=== PATIENT | male | born 1945 | race Caucasian/White ===

== ENCOUNTER → 2020-12-01 10:32 | Outpatient (BNVA) | payer MEDICARE, SELFPAY | PROVIDERS: PCP Family Medicine; Referring Provider Family Medicine; Visit Provider Urology | DX: R35.1 Nocturia (principal); R97.20 Elevated prostate specific antigen [PSA]; N32.0 Bladder-neck obstruction | CPT/HCPCS: 81002; 99212 ==

== ENCOUNTER → 2021-12-04 13:50 | Outpatient (BNVA) | payer MEDICARE, SELFPAY | PROVIDERS: PCP Family Medicine; Visit Provider Urology | DX: N32.0 Bladder-neck obstruction (principal) | CPT/HCPCS: 51798; 99212 ==

== ENCOUNTER 2022-02-22 13:12 | Emergency (ER) | payer MEDICARE, SELFPAY ==
[2022-02-22] VITALS (11 sets, daily range): BP systolic 129–149; BP diastolic 75–87; PULSE 60–73; RESP 16–18; TEMP 36.3–37; O2SAT 95–99; BMI 31.4
--- NOTE | 2022-02-22 | ECG_ITS ---
Test Reason : cp Blood Pressure : / mmHG Vent. Rate : 073 BPM Atrial Rate : 073 BPM P-R Int : 208 ms QRS Dur : 098 ms QT Int : 392 ms P-R-T Axes : 054 -28 090 degrees QTc Int : 431 ms Sinus rhythm with Premature atrial complexes Moderate voltage criteria for LVH, may be normal variant ( R in aVL , [place] product ) Nonspecific ST and T wave abnormality Abnormal ECG When compared with ECG of 22-FEB-2022 15:10, Premature atrial complexes are now Present Referred By: Radha Beasley Electronically Signed By:BRANDIE DELACRUZ MD
--- NOTE | ~2022-02-22 | FL_ITS ---
EXAMINATION: XR FLUOROSCOPY WITH IMAGES CLINICAL INFORMATION: Right ureteral stone COMPARISON: Ultrasound renal 06/26/2016, [facility] 05/03/2015 TECHNIQUE: Fluoroscopy performed by Dr. Malcolm Campos. Fluoroscopy time: 62 seconds. Cumulative Dose: 36.83 mGy. Images: 2. FINDINGS: There is guidewire in the right collecting system. Some trace contrast is present. No visible hydronephrosis or extravasation. FL/FL guidance in OR IMPRESSION: Fluoroscopy for urologic procedure.
--- NOTE | 2022-02-22 14:51 | ECG_ITS ---
Test Reason : PRE-OP Blood Pressure : / mmHG Vent. Rate : 066 BPM Atrial Rate : 066 BPM P-R Int : 192 ms QRS Dur : 098 ms QT Int : 386 ms P-R-T Axes : -29 -28 081 degrees QTc Int : 404 ms Normal sinus rhythm Moderate voltage criteria for LVH, may be normal variant ( R in aVL , [place] product ) Nonspecific ST and T wave abnormality Abnormal ECG No previous ECGs available Referred By: Marissa England Electronically Signed By:Antony Escalante
[2022-02-22 14:55] LABS: MANUAL DIFF FLAG NO
--- NOTE | 2022-02-22 14:56 | ED.ABDPAIN ---
HPI - Abdominal Pain General Chief Complaint: Abdominal Pain Stated Complaint: Kidney stone sent by Dr Campos Time Seen by Provider: 02/22/22 14:34 Source: patient Mode of arrival: ambulatory Limitations: no limitations History of Present Illness HPI narrative: known kidney stone dx at [facility] sent to ED by Dr. Campos planned OR later today sent to ED for pain control MD elicited complaint: flank pain Pertinent past history: kidney stones Onset (ago): day(s) (3) Pain Consistency: constant Location: R flank Severity: moderate Quality: sharp Radiation: none Migration to: no migration Exacerbating factors: nothing Relieving factors: nothing Context: history of similar episodes Associated symptoms: nausea Related Data Home Medications Medication Instructions Recorded Confirmed metformin 500 mg tablet,extended 500 mg PO TID 02/22/22 release 24 hr omeprazole 20 mg capsule,delayed 20 mg PO BID 02/22/22 release Previous Rx's Medication Instructions Recorded naproxen 500 mg tablet (Naprosyn) 500 mg PO Q12H PRN pain 30 days 02/22/22 #60 tabs Allergies Allergy/AdvReac Type Severity Reaction Status Date / Time Penicillins [PCN] Allergy Intermediate RASH Unverified 02/22/22 11:08 Dtttkoq-UCA-NmW Reductase Allergy Intermediate BACK PAIN Unverified 02/22/22 11:08 Inhibitor [ZWBVOMC-SED-ILK REDUCTASE INHIBITOR] penicillin V Allergy Unknown rash Verified 02/22/22 11:08 statin drugs AdvReac Unknown neck pain Uncoded 02/22/22 11:08 Review of Systems Review of Systems Constitutional : No Weight loss, No Fever, No Chills ENT/Mouth : No sore throat, No Rhinorrhea Eyes: No Swelling, No Redness Cardiovascular : No Chest Pain, No SOB, NoEdema Respiratory : No Cough, No Sputum, No Wheezing Gastrointestinal : Positive Nausea, no Vomiting, no Diarrhea, positive abdominal Pain, No Hematochezia, No Melena Genitourinary : No Dysuria, No Urinary Frequency, No Hematuria, No Urgency Musculoskeletal : No joint pain, No Myalgias, No Joint Swelling Skin : No Skin Lesions, No rash Neuro : No Weakness, No Numbness, No Dizziness, No Headache Psych : No Anxiety/Panic, No Depression Heme/Lymph: No Bruising, No Lymphadenopathy Endocrine : No Polyuria, No Polydipsia All other systems reviewed and are negative. [facility] Past Medical History Attestation statement: The following information was validated with the patient. Medical History Diabetes Elevated PSA Nephrolithiasis Social History Social History (Updated 02/22/22 @ 14:57 by Marissa England DO) Patient Tobacco Use Status: Never used Tobacco Use of substances other than those prescribed or required for medical reasons: No Advance Directives: Yes Advance Directives Information Provided: Yes Advance Directives on File: No Physical Exam ED Vital Signs: Vital Signs - 24 hr 02/22/22 13:40 02/22/22 15:26 02/22/22 15:30 Temperature 97.8 F 98.6 F Pulse Rate 70 60 65 Respiratory Rate 18 16 17 Blood Pressure 138/78 140/87 H 136/81 Pulse Oximetry 96 96 95 Oxygen Delivery Method Room Air Room Air Room Air BMI result Body Mass Index 31.4 Appearance: Alert. Oriented X3. No acute distress. Eyes: Pupils equal, round and reactive to light. ENT: Pharynx normal. Neck: Normal inspection. Neck supple. CVS: Normal heart rate and rhythm. Pulses normal. Respiratory: No respiratory distress. Breath sounds normal. Abdomen: Soft and mild R sided abdominal ttp no rebound Skin: Skin warm and dry. Normal skin color. Normal skin turgor. Extremities: No lower extremity edema. No calf ttp Neuro: Oriented X 3. No motor deficit. No sensory deficit. Course Course Course Narrative: Cr 1.8 on 02/21 at [facility] [place] CT scan mild R hydronephrosis 1.8 x 0.9 x 1.5cm R UPJ junction notified Andres of Cr increased from 1.8 to 2.9 - Dr. Campos aware MDM - Abdominal Pain MDM Narrative Medical decision making narrative: 77 yo male with hx of DM, renal colic sent to ED for pain control plan for OR later today - at this time will need labs, UA, IV dilaudid for pain, planned admit to short stay surgery Lab Data Result diagrams: 02/22/22 14:51 02/22/22 14:51 Labs: Lab Results 02/22/22 02/22/22 02/22/22 Range/Units 14:51 14:51 14:51 WBC 10.5 (4.8-10.8) X10*3/uL RBC 4.68 (4.60-5.80) X10*6/uL Hgb 14.0 (14.0-18.0) g/dl Hct 42.8 (42.0-52.0) % MCV 91.5 (80.0-98.0) fL MCH 29.9 (27.0-33.0) pg MCHC 32.7 (31.0-36.0) g/dl RDW 12.9 (11.0-16.0) % Plt Count 172 (160-400) X10*3/uL MPV 10.1 (9.4-12.4) fL Immature Gran % (Auto) 0.4 (0.0-0.4) % Neut % (Auto) 66.5 (45-73) % Lymph % (Auto) 20.2 (20-40) % [place] % (Auto) 10.7 (2-11) % Eos % (Auto) 1.8 (0-4) % Baso % (Auto) 0.4 (0-2) % Lymph # (Auto) 2.1 (1.2-4.9) X10*3/uL [place] # (Auto) 1.1 (0.1-1.2) X10*3/uL Eos # (Auto) 0.2 (0.0-0.4) X10*3/uL Baso # (Auto) 0.0 (0.0-0.2) X10*3/uL Abs Immat Gran (auto) 0.04 H (0.00-0.03) X10*3/uL Absolute Neuts (auto) 7.0 (2.0-8.3) x10*3/uL Absolute Nucleated RBC 0.000 (0.0-0.012) X10*3/uL Nucleated RBC % (auto) 0.0 (0.0-0.2) /100WBC PT 11.5 (10.0-13.1) SEC INR 1.0 (0.9-1.1) Sodium 138 (135-145) mmol/L Potassium 4.3 (3.3-5.1) mmol/L Chloride 103 (96-108) mmol/L Carbon Dioxide 25 (22-29) mmol/L Anion Gap 14 (12-20) BUN 32 H (9-16) mg/dL Creatinine 2.92 H (0.5-1.4) mg/dL Estim Creat Clear Calc 25.3 Estimated GFR 21 Random Glucose 150 H (60-115) mg/dL Calcium 8.7 (8.4-10.2) mg/dL COVID-19 (HORACIO) (Negative) COVID-19 Clin Com 02/22/22 Range/Units 14:51 WBC (4.8-10.8) X10*3/uL RBC (4.60-5.80) X10*6/uL Hgb (14.0-18.0) g/dl Hct (42.0-52.0) % MCV (80.0-98.0) fL MCH (27.0-33.0) pg MCHC (31.0-36.0) g/dl RDW (11.0-16.0) % Plt Count (160-400) X10*3/uL MPV (9.4-12.4) fL Immature Gran % (Auto) (0.0-0.4) % Neut % (Auto) (45-73) % Lymph % (Auto) (20-40) % [place] % (Auto) (2-11) % Eos % (Auto) (0-4) % Baso % (Auto) (0-2) % Lymph # (Auto) (1.2-4.9) X10*3/uL [place] # (Auto) (0.1-1.2) X10*3/uL Eos # (Auto) (0.0-0.4) X10*3/uL Baso # (Auto) (0.0-0.2) X10*3/uL Abs Immat Gran (auto) (0.00-0.03) X10*3/uL Absolute Neuts (auto) (2.0-8.3) x10*3/uL Absolute Nucleated RBC (0.0-0.012) X10*3/uL Nucleated RBC % (auto) (0.0-0.2) /100WBC PT (10.0-13.1) SEC INR (0.9-1.1) Sodium (135-145) mmol/L Potassium (3.3-5.1) mmol/L Chloride (96-108) mmol/L Carbon Dioxide (22-29) mmol/L Anion Gap (12-20) BUN (9-16) mg/dL Creatinine (0.5-1.4) mg/dL Estim Creat Clear Calc Estimated GFR Random Glucose (60-115) mg/dL Calcium (8.4-10.2) mg/dL COVID-19 (HORACIO) Negative (Negative) COVID-19 Clin Com See Note ECG Data Attestation: I personally reviewed and interpreted this ECG as follows: ECG interpretation date: 02/22/22 ECG interpretation time: 15:21 Interpretation: Rate: 66 Rhythm: NSR [place]: left, LVH Normal P waves. Normal CRISTIANO. Normal QRS complex. ST T wave : nonspecific no DARLYN qTC: normal prior studies: no acute ischemia The study has been interpreted contemporaneously by me. . Discharge Plan Discharge Clinical Impression: Renal colic, Acute renal failure Patient Disposition: Admitted As Inpatient
[2022-02-22 14:57] LABS: Basophils Percent Auto 0.4 % (0-2); Eosinophils Absolute Auto 0.2 X10*3/uL (0.0-0.4); Eosinophils Percent Auto 1.8 % (0-4); Hematocrit 42.8 % (42.0-52.0); Imm Gran Abs Auto 0.04 X10*3/uL (0.00-0.03); Imm Gran Pct Auto 0.4 % (0.0-0.4); Lymphocytes Absolute Auto 2.1 X10*3/uL (1.2-4.9); Lymphocytes Percent Auto 20.2 % (20-40); Mean Corpuscular HGB Conc 32.7 g/dl (31.0-36.0); Mean Corpuscular Hemoglobin 29.9 pg (27.0-33.0); Mean Corpuscular Volume 91.5 fL (80.0-98.0); Mean Platelet Volume 10.1 fL (9.4-12.4); Monocytes Absolute Auto 1.1 X10*3/uL (0.1-1.2); Monocytes Percent Auto 10.7 % (2-11); Neutrophils Percent Auto 66.5 % (45-73); Platelet Count 172 X10*3/uL (160-400); Red Blood Count 4.68 X10*6/uL (4.60-5.80); Red Cell Distribution Width 12.9 % (11.0-16.0); White Blood Count 10.5 X10*3/uL (4.8-10.8)
[2022-02-22 15:03] LABS: Prothrombin Time 11.5 SEC (10.0-13.1)
[2022-02-22 15:12] LABS: COVID-19 Test Negative (Negative)
[2022-02-22 15:14] LABS: Anion Gap 14 (12-20); Blood Urea Nitrogen 32 mg/dL (9-16); Calcium 8.7 mg/dL (8.4-10.2); Carbon Dioxide 25 mmol/L (22-29); Chloride 103 mmol/L (96-108); Creatinine Clr Calc Pharmacy 25.3; Estimated Glomerular Filt Rate 21; Glucose Random 150 mg/dL (60-115); Potassium 4.3 mmol/L (3.3-5.1); Sodium 138 mmol/L (135-145)
[2022-02-22] MEDS: ondansetron HCL 4 MG/2 ML VIAL IVPUSH (15:23)
[2022-02-22] MEDS: HYDROmorphone HCl 1 MG/ML SYRINGE IVPUSH (15:23)
[2022-02-22] MEDS: 0.9 % Sodium Chloride 1,000 ML 999 ML IV ×3 (15:24→16:34)
--- NOTE | 2022-02-22 16:46 | P.CNUR_ITS ---
History of Present Illness Consult details Consult date: 02/22/22 Narrative: consult - right renal stone with acute kidney insult George is a pleasant male Known to Urology for BPH Presented to [facility] with 2 days of pain yesterday and found to have 1.4 cm right renal stone After talking to office this morning had persistent pain in inability to tolerate oral intake Assessed in emergency room with creatinine of 2.9 up from 1.6 WBC 10.5 Recommend cystoscopy with right retrograde and stent placement for relief of renal obstruction Review of Systems Constitutional: Constitutional: Reports as per HPI and Reports no additional constitutional complaints Cardiovascular: Cardiovascular: Reports as per HPI and Reports no additional cardiovascular complaints Respiratory: Respiratory: Reports as per HPI and Reports no additional respiratory complaints Gastrointestinal: Gastrointestinal: Reports as per HPI and Reports no additional gastrointestinal complaints Genitourinary: Genitourinary: Reports as per HPI Musculoskeletal: Musculoskeletal: Reports no additional musculoskeletal comp laints and Reports as per HPI Neurologic: Reports system reviewed and no additional complaints, except as documented and Reports as per HPI [facility] Past Medical History Medical History Diabetes Elevated PSA Nephrolithiasis Social History Social History (Updated 02/22/22 @ 14:57 by Marissa England DO) Patient Tobacco Use Status: Never used Tobacco Use of substances other than those prescribed or required for medical reasons: No Advance Directives: Yes Advance Directives Information Provided: Yes Advance Directives on File: No Meds Allergies Allergy/AdvReac Type Severity Reaction Status Date / Time Penicillins [PCN] Allergy Intermediate RASH Unverified 02/22/22 11:08 Qvmdnic-DNQ-ElH Reductase Allergy Intermediate BACK PAIN Unverified 02/22/22 11:08 Inhibitor [IGGLTLI-QHR-QHR REDUCTASE INHIBITOR] penicillin V Allergy Unknown rash Verified 02/22/22 11:08 statin drugs AdvReac Unknown neck pain Uncoded 02/22/22 11:08 Active Medications: Current Medications Pharmacy Consult (Consult Rx Perform Med Rec) 1 each MISCELLANE ONCE PRN PRN Reason: Consult order Home Medications Medication Instructions Recorded Confirmed Last Taken Type metformin 500 mg tablet,extended 500 mg PO TID 02/22/22 Unknown History release 24 hr omeprazole 20 mg capsule,delayed 20 mg PO BID 02/22/22 Unknown History release Physical Exam Vital Signs: Vital Signs: Last Vital Signs Temp 98.6 F 02/22/22 15:30 Pulse 67 02/22/22 16:34 Resp 16 02/22/22 16:34 BP 147/83 H 02/22/22 16:34 Pulse Ox 97 02/22/22 16:34 O2 Del Method 02/22/22 16:34 BMI result Body Mass Index 31.4 Const: General: cooperative, healthy appearing, comfortable and no acute distress Orientation/consciousness: patient oriented x3 HEENT: Face and sinus: Yes normal facial exam Mouth: moist mucous membranes Neck: Neck: Yes normal visual inspection, Yes full ROM and Yes trachea midline Chest: Chest palpation & inspection: normal inspection of the chest Resp: Effort & Inspection: normal respiratory effort, able to speak in complete sentences and no respiratory distress GI: Inspection: Yes normal to inspection Back/Spine/Pelvis: Cervical Spine: normal cervical lordosis Thoracic/Lumbar Spine: thoracic and lumbar spine normal to inspection Skin: General skin exam: no rashes or lesions noted Neuro: General: patient oriented x3, tone normal and moves all extremities Extrem: General: Yes normal to inspection and Yes capillary refill normal Results Labs Result diagrams: 02/22/22 14:51 02/22/22 14:51 Labs: Abnormal lab results 02/22/22 02/22/22 Range/Units 14:51 14:51 Abs Immat Gran (auto) 0.04 H (0.00-0.03) X10*3/uL BUN 32 H (9-16) mg/dL Creatinine 2.92 H (0.5-1.4) mg/dL Random Glucose 150 H (60-115) mg/dL Short CBC 02/22/22 Range/Units 14:51 WBC 10.5 (4.8-10.8) X10*3/uL Hgb 14.0 (14.0-18.0) g/dl Hct 42.8 (42.0-52.0) % Plt Count 172 (160-400) X10*3/uL BMP 02/22/22 14:51 Sodium 138 Potassium 4.3 Chloride 103 Carbon Dioxide 25 BUN 32 H Creatinine 2.92 H Calcium 8.7 All other labs normal. Assessment and Plan (1) Renal colic: Status: Acute (2) Acute renal failure: Qualifiers: Acute renal failure type: unspecified Qualified Code(s): N17.9 - Acute kidney failure, unspecified Status: Acute (3) Nephrolithiasis: Status: Acute Plan cystoscopy, right retrograde, right stent placement will defer stone therapy until renal function normalized Procedures Date of Service Date of Service: 02/22/22
--- NOTE | 2022-02-22 16:52 | PHA.MEDREC ---
Pharmacy Consult ? Medication Reconciliation Pharmacy has completed the medication reconciliation. Patient reported all medicaitons. Maryan ConnorsD
[2022-02-22 17:11] LABS: Glucose, Whole Blood 125 mg/dL (60-115)
--- NOTE | 2022-02-22 17:18 | HO.ANESPROP2 ---
FORMERLY [facility], [facility] Active Problems Active Problems: All Active Problems (Updated 02/22/22 @ 16:48 by Malcolm Campos MD) Nephrolithiasis (Acute) Renal colic (Acute) Acute renal failure (Acute) Bladder outlet obstruction (Acute) Nocturia more than twice per night (Acute) Past Medical History Medical History Diabetes Elevated PSA Nephrolithiasis Functional capacity: independent ambulation Family History Family history of problems with anesthesia: No Surgical History History of Problems with Anesthesia: No Social History Social History Patient Tobacco Use Status: Never used Tobacco Use of substances other than those prescribed or required for medical reasons: No Are you DNR?: No Advance Directives: No Advance Directives Information Provided: No Advance Directives on File: No Meds Allergies Allergy/AdvReac Type Severity Reaction Status Date / Time Penicillins [PCN] Allergy Intermediate RASH Unverified 02/22/22 11:08 Llpjzwl-NBQ-VsU Reductase Allergy Intermediate BACK PAIN Unverified 02/22/22 11:08 Inhibitor [FEWUJZP-KBQ-GNK REDUCTASE INHIBITOR] penicillin V Allergy Unknown rash Verified 02/22/22 11:08 statin drugs AdvReac Unknown neck pain Uncoded 02/22/22 11:08 Active Medications: Current Medications Levofloxacin (Levaquin) 500 mg in 100 mls @ 100 mls/hr IV PREOP ONE Stop: 02/22/22 17:44 Pharmacy Consult (Consult Rx Perform Med Rec) 1 each MISCELLANE ONCE PRN PRN Reason: Consult order Home Medications Medication Instructions Recorded Confirmed Last Taken Type metformin 500 mg tablet,extended 500 mg PO TID 02/22/22 02/22/22 02/22/22 History release 24 hr multivitamin 1 tab PO DAILY 02/22/22 02/22/22 02/22/22 History omeprazole 20 mg capsule,delayed 20 mg PO BID 02/22/22 02/22/22 02/22/22 History release Exam Exam Date and Time: February 22, [id number] Height,Weight and Vital Signs: Height 5 ft 11 in Weight 102.058 kg Last Vital Signs Temp 98.0 F 02/22/22 16:58 Pulse 71 02/22/22 16:58 Resp 18 02/22/22 16:58 BP 149/83 H 02/22/22 16:58 Pulse Ox 97 02/22/22 16:58 O2 Del Method 02/22/22 16:58 Pertinent Lab Results Pertinent Lab Results: Laboratory Tests 02/22/22 02/22/22 02/22/22 14:51 14:51 14:51 WBC 10.5 RBC 4.68 Hgb 14.0 Hct 42.8 MCV 91.5 MCH 29.9 MCHC 32.7 RDW 12.9 Plt Count 172 MPV 10.1 Immature Gran % (Auto) 0.4 Neut % (Auto) 66.5 Lymph % (Auto) 20.2 [place] % (Auto) 10.7 Eos % (Auto) 1.8 Baso % (Auto) 0.4 Lymph # (Auto) 2.1 [place] # (Auto) 1.1 Eos # (Auto) 0.2 Baso # (Auto) 0.0 Abs Immat Gran (auto) 0.04 H Absolute Neuts (auto) 7.0 Absolute Nucleated RBC 0.000 Nucleated RBC % (auto) 0.0 PT 11.5 INR 1.0 Sodium 138 Potassium 4.3 Chloride 103 Carbon Dioxide 25 Anion Gap 14 BUN 32 H Creatinine 2.92 H Estim Creat Clear Calc 25.3 Estimated GFR 21 POC Glucose Random Glucose 150 H Calcium 8.7 COVID-19 (HORACIO) COVID-19 [place] Com 02/22/22 02/22/22 14:51 17:06 WBC RBC Hgb Hct MCV MCH MCHC RDW Plt Count MPV Immature Gran % (Auto) Neut % (Auto) Lymph % (Auto) [place] % (Auto) Eos % (Auto) Baso % (Auto) Lymph # (Auto) [place] # (Auto) Eos # (Auto) Baso # (Auto) Abs Immat Gran (auto) Absolute Neuts (auto) Absolute Nucleated RBC Nucleated RBC % (auto) PT INR Sodium Potassium Chloride Carbon Dioxide Anion Gap BUN Creatinine Estim Creat Clear Calc Estimated GFR POC Glucose 125 H Random Glucose Calcium COVID-19 (HORACIO) Negative COVID-19 Clin Com See Note Airway Mallampati Class: II TM Dist: >3cm Neck ROM: Full Heart: RRR Lungs: CTA Assessment and Plan Final Anesthetic Review Family History of Problems with Anesthesia: No History of Problems with Anesthesia: No ASA Class: II and Emergency Final Preanesthetic Review: No Changes in Pt Med Stat, Meds/Allgs Chart Reviewed, Consent Obtained/Reviewed and Anes Risks/Benef Reviewed Patient Risk: Low Procedure Risk: Low Anesthetic Plan Anesthetic Plan: GA Disposition: Standard PACU
--- NOTE | 2022-02-22 18:02 | MHC.SHP ---
Pre-Procedural Eval Section A Date of Service: 02/22/22 The patient is an INPATIENT: No Changes since office visit: No Cold of Flu in the past 2 weeks, No New Medical Problems, No Changes in Medication and No Patient answered all questions The History & Physical has been completed within 30 days and I have reviewed it.: Yes Section B Chief Complaint: Kidney stone sent by Dr Campos Allergies: Allergies Allergy/AdvReac Type Severity Reaction Status Date / Time Penicillins [PCN] Allergy Intermediate RASH Unverified 02/22/22 11:08 Skkbnxh-OQI-TwK Reductase Allergy Intermediate BACK PAIN Unverified 02/22/22 11:08 Inhibitor [PBNIEFM-PWA-BWR REDUCTASE INHIBITOR] penicillin V Allergy Unknown rash Verified 02/22/22 11:08 statin drugs AdvReac Unknown neck pain Uncoded 02/22/22 11:08 Plan Diagnosis/Plan: Unchanged ( cystoscopy, right retrograde, right stent placement) I have reviewed the history and physical and performed a pertinent physical examination on my patient. No changes have occurred unless specified.
--- NOTE | 2022-02-22 18:19 | W.PM.OPN ---
Operative Note Operative Note Date of Service: 02/22/22 Narrative: PreOperative Diagnosis: right obstructing ureteral stone Post Operative Diagnosis: right obstructing renal stone Procedure: cystoscopy, right retrograde, right stent placement Surgeon: Dr Malcolm Campos Anesthesia: LMA Indications for procedure: acute renal insult with inability to maintain fluids Procedure: After informed consent was verified the patient was brought to the operating room and placed in a supine position. Anesthesia was administered per protocol. The patient was placed in modified dorsal lithotomy position and prepped and draped in a sterile fashion. A safety pause time-out was performed. Laterality of procedure and antibiotics were confirmed. appropriate imaging was available A 22 Sinhala cystoscope was introduced per urethra. No abnormality was noted. Both ureteric orifices were seen in a normal position. The right ureter was cannulated with an open ended catheter and a retrograde examination was performed. filling defects seen in right renal pelvis . A Sensor guidewire was placed under fluoroscopy and a good coil was seen within the renal pelvis. A 6 Sinhala by 28 cm double-J stent was advanced over the wire and up to the level of the renal pelvis under fluoroscopic and direct visualization. The stent was seen with appropriate coil within the renal pelvis and in the bladder after deployment. The patient tolerated the procedure well and was transferred in stable condition to the recovery area. Pathology: none Drains: stent is above
--- NOTE | 2022-02-22 18:48 | PC.NURSE ---
PATIENT CR 2.92. DR. LOGAN AWARE AND REPORTS PATIENT ABLE TO DISCHARGE TO HOME
[2022-02-22] MEDS: Phenazopyridine HCL 100 MG TABLET PO (18:59)
[2022-02-22 19:14] LABS: Glucose, Whole Blood 126 mg/dL (60-115)
--- NOTE | 2022-02-23 07:55 | MHC.CM.PN ---
Patient d/c'd home before being seen by case management.
[2022-03-03 05:31] LABS: Stone Source KIDNEY STONE
== END 2022-02-22 19:36 | disposition home or self-care (01) ==
PROVIDERS: Emergency Provider Emergency Medicine; PCP Family Medicine; Visit Provider Urology
PROC: 0TJB8ZZ Inspection of Bladder, Via Natural or Artificial Opening Endoscopic (ICD-10-PCS; CPT 52000; principal; 2022-02-22 17:30)
DX: N20.1 Calculus of ureter (principal); N17.9 Acute kidney failure, unspecified; E87.8 Other disorders of electrolyte and fluid balance, not elsewhere classified; N23 Unspecified renal colic; Z20.822 Contact with and (suspected) exposure to COVID-19; R11.0 Nausea; E11.9 Type 2 diabetes mellitus without complications; Z87.442 Personal history of urinary calculi
CPT/HCPCS: 52332; 80048; 82365; 82947; 85025; 85610; 87635; 88300; 93005; 96361; 96374; 96375; 99212; 99285; C2617; J1170; J1956; J2405; J3010

== ENCOUNTER → 2022-03-01 11:00 | Outpatient (BNVA) | payer MEDICARE, SELFPAY | PROVIDERS: PCP Family Medicine; Visit Provider Urology | DX: N20.0 Calculus of kidney (principal) | CPT/HCPCS: Q3014 ==

== ENCOUNTER 2022-03-18 12:35 | Day surgery (SDC) | payer MEDICARE, SELFPAY ==
[2022-03-12 15:12] VITALS: BMI 31.4
--- NOTE | 2022-03-15 13:11 | HO.ANESPROP2 ---
Documented by User: Emerald Mccauley NP 03/15/22 13:12 HPI - Anesthesia Eval Consult details Narrative: 77yo M for Right Cystoscopy, Ureteroroscopy, Retro, Laser with poss stent exchange s/p cysto, stent 02/22/22 with GA-LMA 5 PMFSH Active Problems Active Problems: All Active Problems (Updated 03/12/22 @ 15:12 by Bharti Campbell RN) Nocturia more than twice per night (Acute) Bladder outlet obstruction (Acute) Nephrolithiasis (Acute) Past Medical History Medical History (Updated 03/12/22 @ 15:12 by Bharti Campbell RN) BPH (benign prostatic hyperplasia) Diabetes Elevated PSA GERD (gastroesophageal reflux disease) Nephrolithiasis Family History Family history of problems with anesthesia: No Surgical History Surgical History (Updated 03/12/22 @ 15:11 by Bharti Campbell RN) Hx of cystoscopy Hx of cystoscopy Hx of lithotripsy History of Problems with Anesthesia: No Social History Social History Patient Tobacco Use Status: Never used Tobacco Use of substances other than those prescribed or required for medical reasons: No Are you DNR?: No Advance Directives: No Advance Directives Information Provided: Yes Meds Allergies Allergy/AdvReac Type Severity Reaction Status Date / Time Penicillins [PCN] Allergy Intermediate RASH Verified 03/01/22 11:00 Dnquokx-VUV-YyD Reductase Allergy Intermediate BACK PAIN Verified 03/01/22 11:00 Inhibitor [[id number] REDUCTASE INHIBITOR] Home Medications Medication Instructions Recorded Confirmed Last Taken Type metformin 500 mg tablet,extended 500 mg PO TID 02/22/22 02/22/22 02/22/22 History release 24 hr multivitamin 1 tab PO DAILY 02/22/22 02/22/22 02/22/22 History omeprazole 20 mg capsule,delayed 20 mg PO BID 02/22/22 02/22/22 02/22/22 History release Exam Exam Date and Time: March 15, 2022 1311 Height,Weight and Vital Signs: Height 5 ft 11 in Weight 102.058 kg Pertinent Lab Results Pertinent Lab Results: Laboratory Tests 02/22/22 02/22/22 14:51 14:51 WBC 10.5 Hgb 14.0 Hct 42.8 Plt Count 172 Sodium 138 Potassium 4.3 Chloride 103 Carbon Dioxide 25 BUN 32 H Creatinine 2.92 H Narrative Narrative: EKG 02/2022 Vent. Rate : 066 BPM ? ? Atrial Rate : 066 BPM ?? P-R Int : 192 ms? QRS Dur : 098 ms ? ? QT Int : 386 ms ? ? ? P-R-T Axes : -29 -28 081 degrees ?? QTc Int : 404 ms ? Normal sinus rhythm Moderate voltage criteria for LVH, may be normal variant ( R in aVL , [place] product ) Nonspecific ST and T wave abnormality Abnormal ECG No previous ECGs available Assessment and Plan Assessment Anesthesia Assessment: Chart Reviewed Final Anesthetic Review Family History of Problems with Anesthesia: No History of Problems with Anesthesia: No Documented by User: Uli Agarwal MD 03/18/22 17:09 [facility] Past Medical History Medical History (Updated 03/12/22 @ 15:12 by Bharti Campbell RN) BPH (benign prostatic hyperplasia) Diabetes Elevated PSA GERD (gastroesophageal reflux disease) Nephrolithiasis Surgical History Surgical History (Updated 03/12/22 @ 15:11 by Bharti Campbell RN) Hx of cystoscopy Hx of cystoscopy Hx of lithotripsy Social History Social History Patient Tobacco Use Status: Never used Tobacco Use of substances other than those prescribed or required for medical reasons: No Are you DNR?: No Advance Directives: No Advance Directives Information Provided: Yes Meds Allergies Allergy/AdvReac Type Severity Reaction Status Date / Time Penicillins [PCN] Allergy Intermediate RASH Verified 03/01/22 11:00 Vsbhspp-KAC-FvW Reductase Allergy Intermediate BACK PAIN Verified 03/01/22 11:00 Inhibitor [[id number] REDUCTASE INHIBITOR] Home Medications Medication Instructions Recorded Confirmed Last Taken Type metformin 500 mg tablet,extended 500 mg PO TID 02/22/22 02/22/22 02/22/22 History release 24 hr multivitamin 1 tab PO DAILY 02/22/22 02/22/22 02/22/22 History omeprazole 20 mg capsule,delayed 20 mg PO BID 02/22/22 02/22/22 02/22/22 History release Exam Airway Mallampati Class: III TM Dist: >3cm Neck ROM: Full Loose/Missing/Broken Teeth: Yes Heart: S1,S2 Lungs: b/l breath sounds Assessment and Plan Assessment Anesthesia Assessment: Anesthesia Plan Discussed Final Anesthetic Review NPO: Yes ASA Class: II Final Preanesthetic Review: Meds/Allgs Chart Reviewed, Consent Obtained/Reviewed and Anes Risks/Benef Reviewed Patient Risk: Intermediate Procedure Risk: Intermediate Anesthetic Plan Anesthetic Plan: GA Disposition: Standard PACU
[2022-03-18] VITALS (7 sets, daily range): BP systolic 127–142; BP diastolic 67–84; PULSE 54–79; RESP 16–18; TEMP 36.2–36.8; O2SAT 93–98; BMI 68.2
--- NOTE | ~2022-03-18 | FL_ITS ---
EXAMINATION: XR FLUOROSCOPY WITH IMAGES CLINICAL INFORMATION: Right urinary tract calculus COMPARISON: Fluoroscopy with images 02/22/2022, renal ultrasound 06/26/2016, KUB 05/03/2015 TECHNIQUE: Fluoroscopy performed by Dr. Malcolm Campos. Fluoroscopy time: 0.6 minutes. Cumulative Dose: 15.6 mGy. DAP: 4.26 Gy-cm2. Images: 1. FINDINGS: There is a catheter/stent overlying the right urinary tract. Lower and is beyond the [id number]. FL/FL guidance in OR IMPRESSION: Fluoroscopy for urologic procedure.
--- NOTE | 2022-03-18 15:22 | MHC.SHP ---
Pre-Procedural Eval Section A Date of Service: 03/18/22 The patient is an INPATIENT: No Changes since office visit: No Cold of Flu in the past 2 weeks, No New Medical Problems, No Changes in Medication and No Patient answered all questions The History & Physical has been completed within 30 days and I have reviewed it.: Yes Section B Chief Complaint: Calculus of kidney Details of Present Illness: cystoscopy, right stent removal, right flexible ureteroscopy with laser lithotripsy in possible stent placement Relevant Family History (Specify if Yes): No Relevant Social History: None Present Medications: see Short Stay Collaborative assessment Medical History: No relevant PMH History of Previous Operations: Relevant previous surgery/procedure and date(s) Allergies: Allergies Allergy/AdvReac Type Severity Reaction Status Date / Time Penicillins [PCN] Allergy Intermediate RASH Verified 03/01/22 11:00 Pmpjkue-GKE-KsV Reductase Allergy Intermediate BACK PAIN Verified 03/01/22 11:00 Inhibitor [[id number] REDUCTASE INHIBITOR] Review of Systems Sugical H&P ROS: Negative: Constitution, Cardiovascular, Respiratory, Neurological, Psychiatric, Hem-Onc, Allergic/Immunologic, Gastrointestinal, Genitourinary, Musculoskeletal, Integumentary, Endocrine and Eyes/Ears/Nose/Throat Exam Surgical H&P Exam: Normal: HEENT, Normal: Heart, Normal: Lungs, Normal: Extremities, Normal: Abdomen, Normal: Skin and Normal: Neurological Plan Diagnosis/Plan: Unchanged I have reviewed the history and physical and performed a pertinent physical examination on my patient. No changes have occurred unless specified.
[2022-03-18] MEDS: Lactated Ringers 1,000 ML 100 ML IVCONT (15:35)
[2022-03-18 15:42] LABS: Glucose, Whole Blood 134 mg/dL (60-115)
--- NOTE | 2022-03-18 18:49 | W.PM.OPN ---
Operative Note Operative Note Date of Service: 03/18/22 Narrative: PreOperative Diagnosis: right renal stone large 1.5 cm Post Operative Diagnosis: 1. Right renal stone large 2. Bladder stones Procedure: - cystoscopy, bladder stone grasping and removing - right retrograde, removal right indwelling stent - right ureteroscopy, laser lithotripsy, stone basketing - Modifier 22 100% longer than typical Surgeon: Dr Malcolm Campos Anesthesia: General Indications for procedure: had attended hospital with right-sided flank pain and had 1.5 cm renal stone and stent placed. Here for follow-up for a dressing stone. Understands that due to the size the stone this may be a staged procedure and he may require subsequent secondary procedures for further stone removal in stone to bulking. Procedure: After informed consent was verified patient was brought to the operating placed in supine position. Anesthesia was administered per protocol. Patient was placed in modified dorsal lithotomy position and prepped and draped in a sterile fashion. Safety pause time-out and side of surgery confirmed. Antibiotics confirmed. 22 Gabonese cystoscope was inserted per urethra. Bladder was normal in its entirety. Both ureteric orifices were in normal position. Stent emerging from right ureter. There were also 2 bladder stones in placed. One bladder stone was able to be removed with the stent grasper. Sensor guidewire placed alongside the right indwelling stent. The cystoscope was removed and replaced. The indwelling ureteric stent was removed. The ureteric access sheath was placed and the inner cannula with access wire removed. The digital flexible ureteral scope was placed. A large stone was encountered in the renal pelvis. This was addressed with a laser in broken into many small pieces. This took approximately 50 minutes and was 100% longer than typical. once the stone had been broken into small pieces a Zero tip basket was then used to remove numerous small pieces which we sent for analysis. The renal pelvis was also irrigated. He had a past if a stent could be avoided. Since ureter he has a dilated ureter we did not decide to leave a stent. The bladder was emptied with a rigid cystoscope. The 2nd bladder stone was seen and using the Zero tip basket the stone was removed. The bladder was emptied. The patient tolerated the procedure well and was extubated in the operating room, and transferred in stable condition to the recovery area. Pathology: Stones Drains: no drain
[2022-03-18] MEDS: Phenazopyridine HCL 100 MG TABLET PO (19:13)
[2022-03-18 19:18] LABS: Glucose, Whole Blood 128 mg/dL (60-115)
[2022-03-22 03:17] LABS: Stone Source RIGHT KIDNEY STONE
== END 2022-03-18 19:39 | disposition home or self-care (01) ==
PROVIDERS: PCP Family Medicine; Visit Provider Urology
PROC: (CPT 52353; principal; 2022-03-18 14:40)
DX: N20.0 Calculus of kidney (principal); N21.0 Calculus in bladder; N40.0 Benign prostatic hyperplasia without lower urinary tract symptoms; R97.20 Elevated prostate specific antigen [PSA]; Z87.442 Personal history of urinary calculi; K21.9 Gastro-esophageal reflux disease without esophagitis; E11.9 Type 2 diabetes mellitus without complications; Z79.84 Long term (current) use of oral hypoglycemic drugs; Z79.899 Other long term (current) drug therapy; Z88.0 Allergy status to penicillin; Z88.8 Allergy status to other drugs, medicaments and biological substances
CPT/HCPCS: 52353; 52352; 82365; 82947; 88300; C1758; C1769; C1894; J1956; J2405; J3010; Q9967

== ENCOUNTER → 2022-04-10 09:56 | Outpatient (BNVA) | payer MEDICARE, SELFPAY | PROVIDERS: PCP Family Medicine; Visit Provider Urology | DX: N20.0 Calculus of kidney (principal); N40.1 Benign prostatic hyperplasia with lower urinary tract symptoms; N13.8 Other obstructive and reflux uropathy; N39.0 Urinary tract infection, site not specified | CPT/HCPCS: 99212 ==

== ENCOUNTER 2022-07-02 14:44 | Outpatient (REF) | payer MEDICARE, SELFPAY ==
--- NOTE | ~2022-07-02 | US_ITS ---
EXAMINATION: US RETROPERITONEAL LIMITED (RENAL ONLY) CLINICAL INFORMATION: Calculus of kidney. COMPARISON: Ultrasound retroperitoneal limited (renal only) 06/26/2016 and 12/18/2015. X-ray abdomen KUB 05/03/2015 and 04/05/2015. TECHNIQUE: Real-time imaging of the kidneys. FINDINGS: RIGHT KIDNEY: 14.3 x 6.2 x 6.9 cm (SAG x AP x TRV). The kidney is normal in size, contour, and echogenicity. Renal cortical thickness is normal. No hydronephrosis. Three cysts are present, one in the upper pole measuring 1.4 cm, midpole measuring 3.0 cm and lower pole measuring 1.3 cm. No solid renal masses. At least 4 echogenic foci seen consistent with nonobstructing calculi ranging in size from 4 to 5 mm throughout the kidney. On the 2016 ultrasound, no renal calculi were seen on the right. LEFT KIDNEY: 14.8 x 4.3 x 4.4 cm (SAG x AP x TRV). The kidney is normal in size, contour, and echogenicity. Three echogenic foci are seen consistent with nonobstructing stones, one in the upper pole measuring 6 mm, midpole measuring 6 mm and lower pole measuring 5 mm. On the 2016 ultrasound, only a single calculus was present. No focal parenchymal lesions or hydronephrosis. US/US renal BI IMPRESSION: Bilateral nonobstructing renal calculi increasing in number since 2015. Bosniak class I right-sided renal cysts need no further imaging or follow up.
== END 2022-07-02 14:45 | disposition home or self-care (01) ==
LOC: HO.US 14:44
PROVIDERS: Visit Provider Urology
DX: N20.0 Calculus of kidney (principal)
CPT/HCPCS: 76775